=== PATIENT | female | born 1970 | race Caucasian/White ===

== ENCOUNTER 2017-03-04 10:00 | Inpatient (IN) | payer OTHER ==
--- NOTE | ~2017-03-04 | DS ---
Unit #: [id number] #: [id number] Patient: COURTNEY HERNÁNDEZ [id number] [place] [address] [id number] MR#: [id number] NAME: COURTNEY HERNÁNDEZ. ROOM: P256 Age: 47 Sex: F Admission Date: 03/04/2017 : 1970 Discharge Date: 03/08/2017 Attending Physician: Carmine Carcamo M.D. Primary Care Physician: Shila Fisher Aprn DISCHARGE SUMMARY REASON FOR ADMISSION The patient is a 47-year-old white female, admitted following a suicide attempt by means of bilateral self-inflicted wrist lacerations. HOSPITAL COURSE The patient was admitted to the [facility] and placed on suicide precautions. She was found to have a probable urinary tract infection and Internal Medicine will be consulted prior to the patient's discharge from the hospital. In the meantime, she was started on Lexapro 10 mg daily which she tolerated without complaint and was continued on previously prescribed Neurontin, Desyrel 50 mg at h.s. was added. The patient showed rapid improvement and by 03/08/2017, was in bright spirits. She requested discharge on that date and it was so ordered. FINAL DIAGNOSES Major depressive disorder, recurrent, moderate; urinary tract infection; status post bilateral wrist lacerations without sequelae for treatment plan. DISPOSITION ON DISCHARGE The patient is discharged on the following medications: Lexapro 10 mg daily for depression, Neurontin 600 mg t.i.d. for anxiety, and Desyrel 50 mg at h.s. p.r.n. insomnia. DISCHARGE INSTRUCTIONS No dietary or physical restrictions were placed upon the patient at the time of discharge. FOLLOWUP Followup will take place through the auspices of community mental health resources in the [facility]. PROGNOSIS The patient's prognosis is considered good. Dictated by... Carmine Carcamo M.D. PATIENCE/trung TD: 03/08/2017 13:18 JOB #: [id number] Unit #: [id number] #: [id number] Patient: COURTNEY HERNÁNDEZ DISCHARGE SUMMARY Page 1 of 1 X Carmine Carcamo MD DISCHARGE SUMMARY
--- NOTE | ~2017-03-04 | HP ---
Unit #: [id number] #: [id number] Patient: ISA HERNÁNDEZ [id number] [place] [address] [id number] I MR#: [id number] NAME: ISA HERNÁNDEZ. ROOM: P256 Age: 47 Sex: F Admission Date: 03/04/2017 : 1970 Attending Physician: Javi Perry M.D. Admitting Physician: Javi Perry M.D. Primary Care Physician: Shila Fisher Aprn HISTORY AND PHYSICAL HISTORY OF PRESENT ILLNESS Isa is a 47 year old, admitted to [address] [place] [address] with depression and self-harming behavior. Prior to admission she sustained self-inflicted lacerations which required suturing. PAST MEDICAL HISTORY Degenerative disc disease. PAST SURGICAL HISTORY Hysterectomy. ALLERGIES No known drug allergies. SOCIAL HISTORY Smokes one pack per day, drinks alcohol on occasion, denies illicit drug use. FAMILY HISTORY Medically noncontributory. REVIEW OF SYSTEMS CONSTITUTIONAL: No fever or chills. HEENT: Denies any sore throat, ear pain or runny nose. CARDIOVASCULAR: Denies chest pain, irregular heart rhythm or palpitations. CHEST: Denies shortness of breath or cough. No hemoptysis. GASTROINTESTINAL: Denies nausea, vomiting, diarrhea or chronic constipation. ENDOCRINE: Denies history of increased thirst or urination. No recent significant weight loss or gain. GENITOURINARY: Denies dysuria, frequency, or hematuria. SKIN: Denies any rashes. HEMATOLOGIC: Denies history of increased bleeding or bruising. MUSCULOSKELETAL: Denies any hot, swollen joints. No generalized muscle pain. NEUROLOGIC: Denies problems with vision or speech. No frequent, severe headaches. No numbness, tingling or weakness in any extremities. Denies loss of bladder or bowel control. CURRENT MEDICATIONS 1. Desyrel p.r.n. 2. Milk of magnesia p.r.n. 3. Maalox p.r.n. Unit #: [id number] #: [id number] Patient: ISA HERNÁNDEZ 4. Tylenol p.r.n. 5. Nicotine patch 14 mg daily PHYSICAL EXAMINATION GENERAL: Alert, well-nourished, no apparent distress. VITAL SIGNS: Blood pressure 116/78, heart rate 88, respirations 16, and temperature 98.6. WEIGHT: 139 pounds. HEIGHT: 5 feet 6 inches. SKIN: Warm and dry without rash. She does have multiple lacerations along bilateral anterior forearms. Scattered sutures are in place. There is adequate skin approximation without redness, swelling, heat, or pus. Neurovascular intact. HEENT: Normocephalic. TMs not viewed. Oral and nasal passages clear. Conjunctivae clear. PERRLA. EOMs intact. NECK: Supple without lymphadenopathy or thyromegaly. HEART: Regular rate and rhythm without murmur. LUNGS: Clear. ABDOMEN: Soft, nontender. : Not done. EXTREMITIES: No evidence of cyanosis, clubbing or edema. Moves all without focal deficit. Right lower extremity is in a short cast with a walking boot. She is weight bearing. NEUROLOGICAL: Grossly within normal limits. Cranial Nerves: II: Visual garcia are intact. III, IV AND : Extraocular movements are intact. Pupils are equal, round and reactive to light. V: Facial sensation is grossly normal. VII: Facial movements and expression are normal. VIII: Auditory acuity grossly intact. IX, X: Uvula is midline. Phonation is normal. XI: Patient shrugs shoulders and turns head normally. XII: Tongue protrudes in the midline. Sensory and Motor Function: Sensory and motor sensation is grossly normal. Motor: moves all extremities well. Coordination: Gait is normal. Deep Tendon Reflexes: Intact. IMPRESSION 1. Psychiatric admission. 2. Self-inflicted laceration sustained prior to this admission. 3. Fractured right lower extremity approximately one month prior to admission. RECOMMENDATIONS Psychiatric, per psychiatrist. MEDICAL 1. I see no contraindications to participating in facility's activities. 2. Suture removal in seven days. 3. Cast removal per orthopaedics. MEDICAL PROGNOSIS Good. MEDICAL CONDITION Stable. Dictated by... Unit #: [id number] #: [id number] Patient: ISA HERNÁNDEZ Gerlad GraffAClau. for Heather Reynoso/víctor TD: 03/05/2017 11:26 JOB #: [id number] HISTORY AND PHYSICAL Page 1 of 1 X Dinora Eagle HISTORY AND PHYSICAL
--- NOTE | ~2017-03-04 | PN ---
Unit #: [id number] #: [id number] Patient: COURTNEY HERNÁNDEZ [id number] [facility] [address] [place] [address] [id number] I MR#: [id number] NAME: COURTNEY HERNÁNDEZ. ROOM: P256 Age: 47 Sex: F Admission Date: 03/04/2017 : 1970 Attending Physician: Carmine Carcamo M.D. Admitting Physician: Carmine Carcamo M.D. Primary Care Physician: Isauor Greenfield PROGRESS NOTES DATE 03/07/2017 DISCUSSION The patient is somewhat brighter today and reports reduction in suicidal ideation. She is active within the therapeutic milieu and is tolerating medications without complaint. Dictated by... Carmine Carcamo M.D. CB/caroline TD: 03/07/2017 13:25 JOB #: [id number] [facility] PROGRESS NOTES Page 1 of 1 X Carmine Carcamo MD X PROGRESS NOTE
--- NOTE | ~2017-03-04 | A ---
[facility] Nutrition Therapy DATE: 03/05/17 Patient: COURTNEY HERNÁNDEZ Physician: HARMIC Address: [address] Room/Bed: [address], Zip: [place] [address] Admit Date: 03/04/17 Date of : [birth year] Height: 5 6 Weight: [phone] NUTRITIONAL ASSESSMENT: REASON: UNINTENTIONAL WEIGHT LOSS PATIENT ADMITTED FOR SI AND SELF-HARMING BEHAVIORS PMH: HX ULCERS, SCOLIOSIS Anthropometrics: HT: 66", WT: 139, BMI: 22.4, %IBW: 107 Labs: NO LABS AVAILABLE Meds: DESYREL Assessment: PATIENT IS A 47 Y/O FEMALE ADMITTED FOR SI AND SELF-HARMING BEHAVIORS. PATIENT IS CURRENTLY EMPLOYED, LIVES WITH HER BOYFRIEND, SMOKES 1 PPD, AND HAS OCCASIONAL MARIJUANA USE. PATIENT DENIES ANY SUBSTANCE ABUSE ISSUES. PER NEEDS ASSESSMENT PATIENT STATED A FAIR APPETITE WITH NO RECENT WEIGHT LOSS. NURSING REPORTED POOR PO INTAKE AND PATIENT HAS STATED SHE HAD SOME WEIGHT LOSS. IT IS NOTED THAT PATIENT HAS BEEN TEARFUL AND ANXIOUS SINCE ADMIT. PATIENT HAS SELF-INFLICTED WOUNDS TO BILATERAL WRISTS AND A BROKEN FOOT WITH A CAST. THERE ARE NO FURTHER SKIN OR GI ISSUES NOTED ATT. PATIENT MAY ALSO HAVE A POSSIBLE UTI. PATIENT IS ON A REGULAR DIET, HER BMI IS WITHIN A HEALTHY RANGE, AND SHE IS 107% OF HER IBW. Dx: UNINTENTIONAL WEIGHT LOSS R/T CURRENT CONDITION AEB SELF-REPORED WEIGHT LOSS, DECREASED APPETITE, NUTRITIONAL RISK POINT Intervention: REGULAR DIET, MEDS PER MD, PSYCH Monitoring, Evaluation and Goals: 1. ADEQUATE PO INTAKES >50% OF MEALS 2. PREVENT, CORRECT MICRO/MACRO NUTRIENT DEFICIENCIES 3. WEIGHT; MAINTAIN CURRENT WEIGHT, PREVENT ANY FURTHER LOSS MONITOR: WEIGHTS, LABS, PO/FLUID INTAKES Recommendations: 1. CONTINUE REGULAR DIET TOLERATED. OFFER SNACKS BETWEEN MEALS. IF PATIENT HAS C/O HUNGER PLEASE SEND ORDER FOR LARGE PORTION ENTREES AND RD WILL APPROVE 2. ENCOURAGE ADEQUATE PO AND FLUID INTAKES 3. IF PO INTAKES ARE BELOW 50% OF MEALS PLEASE ORDER ENSURE BID TO PROMOTE ADEQUATE [facility] Nutrition Therapy DATE: 03/05/17 Patient: COURTNEY HERNÁNDEZ Physician: HARMIC Address: [address] Room/Bed: [address] State, Zip: [place] [address] Admit Date: 03/04/17 Date of : [birth year] Height: 5 6 Weight: [phone] AND PROTEIN INTAKES 4. OBTAIN WEIGHTS ROUTINELY (EVERY 3-4 DAYS) RD TO F/U PER PROTOCOL AND PRN R/T PATIENT MILDLY COMPROMISED Respectfully, KELL COX, RD, LD [facility] cc: client file
--- NOTE | ~2017-03-04 | CO ---
Unit #: [id number] #: [id number] Patient: ISA HERNÁNDEZ [id number] [place] [address] [id number] I MR#: [id number] NAME: ISA HERNÁNDEZ. ROOM: P256 Age: 47 Sex: F Admission Date: 03/04/2017 : 1970 Attending Physician: Carmine Carcamo M.D. Primary Care Physician: Shila Fisher Aprn Consultation Date: 03/05/2017 CONSULTATION REPORT SUBJECTIVE Isa is a 47-year-old admitted with self-inflicted lacerations which required suturing. PLAN Plan will be to keep these areas clean with soap and water and apply a loose dressing daily. Suture removal in 7 days. Dictated by... Dinora Eagle P.A.-C. for Heather Reynoso/trung TD: 03/09/2017 22:34 JOB #: [id number] CONSULTATION REPORT Page 1 of 1 X Dinora Eagle CONSULTATION REPORT
--- NOTE | ~2017-03-04 | PA ---
Unit #: [id number] #: [id number] Patient: COURTNEY HERNÁNDEZ [id number] [facility] [address] [place] [address] [id number] I MR#: [id number] NAME: COURTNEY HERNÁNDEZ. ROOM: P256 Age: 47 Sex: F Admission Date: 03/04/2017 : 1970 Date of Assessment: 03/05/2017 Attending Physician: Carmine Carcamo M.D. Admitting Physician: Carmine Carcamo M.D. Primary Care Physician: Shila Fisher Aprn PSYCHIATRIC ASSESSMENT IDENTIFYING INFORMATION The patient is a 47-year-old white female, admitted with increasing depression and suicidal ideation. CHIEF COMPLAINT "I did this." INFORMANTS The patient. The patient's reliability is good. HISTORY OF PRESENT ILLNESS The patient is a 47-year-old, single, white female who was admitted to the [address] [place] [address] unit after a suicide attempt in which she had cut both of her wrists requiring sutures in one. The patient reports that she "felt very alone." The patient reports she feels as though she has a burden to everyone since she broke her foot and has been unable to work. The patient is estranged from her children and her mother, and has been feeling increasingly depressed. She complains of poor sleep, loss of appetite, anxiety. She denies abuse of any psychoactive substances. The patient continues to endorse positive suicidal ideation. She grieves the of her grandparents with whom she was recently close. The patient reports past psychiatric history. The patient was prescribed Xanax following the of her grandparents, but has never been on antidepressant medication. PAST MEDICAL HISTORY The patient has a history of chronic back pain and as noted previously, recently broke a foot. MEDICATIONS Neurontin. ALLERGIES None reported. FAMILY HISTORY Noncontributory. SOCIAL HISTORY The patient lives with her boyfriend. She has 2 adult children, with whom she has little contact. She had most recently worked at [employer], but is presently unemployed. She reports no use of alcohol or street drugs. She is a smoker. Unit #: [id number] #: [id number] Patient: COURTNEY HERNÁNDEZ MENTAL STATUS EXAMINATION At this time, the patient to be a well-developed, well-nourished white female, appearing her stated age. She is in no apparent physical distress at the time of examination. She is awake, alert, and oriented in all spheres. Her mood is dysphoric and tearful. Her affect is congruent. Speech is generally well coherent. There are no gross deficits in memory or cognition noted. General intelligence is judged to be in the average range based on fund of knowledge. The patient is cooperative throughout the interview. She is currently reporting positive suicidal ideation. She denies homicidal. She denies any psychotic symptoms. Her judgment and insight appear to be reasonably intact. ASSETS Motivation for change. LIABILITIES Financial and health stressors. DIAGNOSTIC IMPRESSION Major depressive disorder, recurrent moderate; history of broken foot; history of chronic back pain; status post self-inflicted bilateral wrist laceration. TREATMENT PLAN The patient will remain hospitalized for safety and stabilization. A trial of Lexapro 10 mg daily will be initiated. I will restart the patient's Neurontin, additionally trazodone 50 mg at h.s. will be added. The patient will participate in appropriate valles and milieu activities with an estimated stay in the hospital 5 to 7 days. Dictated by... Carmine Carcamo M.D. PATIENCE/trung TD: 03/05/2017 14:12 JOB #: [id number] PSYCHIATRIC ASSESSMENT Page 1 of 1 X Carmine Carcamo MD X PSYCHIATRIC ASSESSMENT
--- NOTE | ~2017-03-04 | PN ---
Unit #: [id number] #: [id number] Patient: COURTNEY HERNÁNDEZ [id number] [facility] [address] [place] [address] [id number] I MR#: [id number] NAME: COURTNEY HERNÁNDEZ. ROOM: P256 Age: 47 Sex: F Admission Date: 03/04/2017 : 1970 Attending Physician: Carmine Carcamo M.D. Admitting Physician: Carmine Carcamo M.D. Primary Care Physician: Isauro Greenfield PROGRESS NOTES DATE 03/06/2017 DISCUSSION The patient is in somewhat brighter spirits today. She is active within the therapeutic milieu and has tolerated medications thus far. She is pushing for early week discharge and will probably be ready for that. Dictated by... Carmine Carcamo M.D. CB/nita TD: 03/06/2017 12:05 JOB #: [id number] [facility] PROGRESS NOTES Page 1 of 1 X Carmine aCrcamo MD X PROGRESS NOTE
[2017-03-06 11:28] LABS: URINE APPEARANCE CLOUDY; URINE BILIRUBIN NEG (NEG); URINE BLOOD NEG (NEG); URINE COLOR YELLOW; URINE GLUCOSE NEG (NEG); URINE KETONE NEG (NEG); URINE LEUKOCYTE ESTERASE TRACE (NEG); URINE NITRATE POS (NEG); URINE PROTEIN NEG (NEG); URINE SPECIFIC GRAVITY 1.006 (1.003-1.035); URINE UROBILINOGEN 0.2 MG/DL (NEG)
[2017-03-06 11:32] LABS: URBCS1 AUWI 0-2 /[HPF] (0-2); URINE BACTERIA AUWI 3+ (NEGATIVE); URINE SQUAMOUS EPITHELIAL CELL MOD /[HPF]
[2017-03-07 13:39] LABS: URINE APPEARANCE CLOUDY; URINE BILIRUBIN NEG (NEG); URINE BLOOD NEG (NEG); URINE COLOR YELLOW; URINE GLUCOSE NEG (NEG); URINE KETONE NEG (NEG); URINE LEUKOCYTE ESTERASE TRACE (NEG); URINE NITRATE POS (NEG); URINE PH 7.5 (5-8); URINE PROTEIN NEG (NEG); URINE SPECIFIC GRAVITY 1.014 (1.003-1.035); URINE UROBILINOGEN 0.2 MG/DL (NEG)
[2017-03-07 13:41] LABS: URBCS1 AUWI 0-2 /[HPF] (0-2); URINE BACTERIA AUWI 4+ (NEGATIVE); URINE SQUAMOUS EPITHELIAL CELL MOD /[HPF]
== END 2017-03-08 14:30 | disposition home or self-care (01) | DRG 885 ==
LOC: P2L 14:33
PROVIDERS: Psychiatry & Neurology Psychiatry; Specialist
DX: F33.1 Major depressive disorder, recurrent, moderate (principal); R45.851 Suicidal ideations; N39.0 Urinary tract infection, site not specified; Z56.0 Unemployment, unspecified; G89.29 Other chronic pain; M54.9 Dorsalgia, unspecified; S61.512D Laceration without foreign body of left wrist, subsequent encounter; S61.511D Laceration without foreign body of right wrist, subsequent encounter; X78.9XXD Intentional self-harm by unspecified sharp object, subsequent encounter; G47.00 Insomnia, unspecified
CPT/HCPCS: 81003